=== PATIENT | female | born 1980 ===

== ENCOUNTER 2018-12-05 15:49 | Emergency (ER) | payer OTHER ==
[2018-12-05] MEDS ORDERED: ONDANSETRON 4 MG TAB.RAPDIS PO ONE (16:02)
--- NOTE | 2018-12-05 16:05 | ER Document Report ---
ED Medical Screen (RME) - General Chief Complaint: Dizziness Stated Complaint: DIZZINESS Time Seen by Provider: 12/05/18 15:58 Mode of Arrival: Ambulatory Information source: Patient Notes: 38-year-old female presented to ED for complaint of unsteady on her feet and stumbling when she got up. She states she woke up with gated bed had a headache and stumbled so she went back to bed slept for some morning when she got up she stumbled again when she got up. She states she cannot keep her balance. She is alert oriented respirations regular and unlabored speaking in full sentences and walks with a even steady gait in the emergency room. She states she has never had anything like this before. She states her friend that she lives with his diabetic so he tested her sugar and told her it was low on a half of but nothing that was bad. She states she has a history of a left fibular right hand fracture and a neck injury and ear tubes other than that she has no medical history. She does not smoke rarely drinks and is an [employer]. I have greeted and performed a rapid initial assessment of this patient. A comprehensive ED assessment and evaluation of the patient, analysis of test results and completion of medical decision making process will be conducted by an additional ED providers. TRAVEL OUTSIDE OF THE [place] IN LAST 30 DAYS: No - Related Data Allergies/Adverse Reactions: No Known Allergies Allergy (Verified 12/05/18 15:50) Physical Exam - Vital signs Vitals: Temp Pulse Resp BP Pulse Ox 98.7 F 88 18 119/77 95 12/05/18 15:58 12/05/18 15:58 12/05/18 15:58 12/05/18 15:58 12/05/18 15:58 Course - Vital Signs Vital signs: Temp Pulse Resp BP Pulse Ox 98.7 F 88 18 119/77 95 12/05/18 15:58 12/05/18 15:58 12/05/18 15:58 12/05/18 15:58 12/05/18 15:58
[2018-12-05] MEDS ORDERED: ONDANSETRON 4 MG TAB.RAPDIS ONE (16:23)
[2018-12-05 16:48] LABS: ABSOLUTE BASOPHILS # (AUTO) 0.1 10^3/uL (0.0-0.2); ABSOLUTE EOSINOPHILS # (AUTO) 0.4 10^3/uL (0.0-0.6); ABSOLUTE LYMPHOCYTES (AUTO) 2.3 10^3/uL (0.5-4.7); ABSOLUTE MONOCYTES (AUTO) 0.8 10^3/uL (0.1-1.4); ABSOLUTE NEUT (AUTO) 3.5 10^3/uL (1.7-8.2); BASOPHILS % (AUTO) 0.7 % (0-2); EOSINOPHILS % (AUTO) 5.6 % (0-6); HEMATOCRIT 39.4 % (36.0-47.0); HEMOGLOBIN 13.5 g/dL (12.0-15.5); LYMPHOCYTES % (AUTO) 33.2 % (13-45); MEAN CORPUSCULAR HEMOGLOBIN 29.2 pg (27.0-33.4); MEAN CORPUSCULAR HGB CONC 34.2 g/dL (32.0-36.0); MEAN CORPUSCULAR VOLUME 85 fl (80-97); MONOCYTES % (AUTO) 11.3 % (3-13); PLATELET COUNT 322 10^3/uL (150-450); RED BLOOD COUNT 4.62 10^6/uL (3.72-5.28); SEGMENTED NEUTROPHILS % (AUTO) 49.2 % (42-78); TOTAL CELLS COUNTED % (AUTO) 100 %; WHITE BLOOD COUNT 7.1 10^3/uL (4.0-10.5)
[2018-12-05 16:58] LABS: APPEARANCE,URINE CLEAR; BILIRUBIN,URINE NEGATIVE (NEGATIVE); COLOR,URINE YELLOW; GLUCOSE, URINE NEGATIVE (NEGATIVE); KETONES,URINE NEGATIVE (NEGATIVE); LEUKOCYTE ESTERASE,URINE NEGATIVE (NEGATIVE); NITRITE,URINE NEGATIVE (NEGATIVE); PROTEIN,URINE NEGATIVE (NEGATIVE); URINE SPECIFIC GRAVITY 1.018; UROBILINOGEN,URINE NEGATIVE mg/dL (<2.0)
[2018-12-05 17:09] LABS: ALBUMIN 4.1 g/dL (3.5-5.0); ALKALINE PHOSPHATASE 61 U/L (38-126); ANION GAP 8 (5-19); ASPARTATE AMINO TRANSFERASE 21 U/L (14-36); BILIRUBIN,DIRECT 0.2 mg/dL (0.0-0.4); BILIRUBIN,TOTAL 0.4 mg/dL (0.2-1.3); BLOOD UREA NITROGEN 12 mg/dL (7-20); CALCIUM 9.3 mg/dL (8.4-10.2); CARBON DIOXIDE 27 mmol/L (22-30); CHLORIDE 102 mmol/L (98-107); POTASSIUM 4.1 mmol/L (3.6-5.0); TOTAL PROTEIN 6.9 g/dL (6.3-8.2)
[2018-12-05 17:23] LABS: GLUCOSE 46 mg/dL (75-110)
--- NOTE | 2018-12-05 18:01 | ER Document Report ---
ED General - General Chief Complaint: Dizziness Stated Complaint: DIZZINESS Time Seen by Provider: 12/05/18 15:58 Mode of Arrival: Ambulatory TRAVEL OUTSIDE OF THE [place] IN LAST 30 DAYS: No - HPI Notes: Patient is a 38-year-old female that presents to the emergency department for chief complaint of dizziness. Patient reports 2-3 episodes of dizziness today. She states when she woke up she felt like the room was spinning and she had a hard time ambulating to the bathroom. She went back to bed and then when she woke up again felt okay. The symptoms then returned later in the day. She describes it as feeling like the room was spinning around her and she was going to fall over. Patient states she recently came back from [place] which was a very dry climate. She has been having a lot of sinus congestion, rhinorrhea, ear itching bilaterally and sneezing. Patient denies history of vertigo in the past. Currently she states she is asymptomatic. She denied any vision changes, numbness, weakness, chest pain, nausea or vomiting and syncopal episodes. Past Medical History: Depression Past Surgical History: Bilateral TM tubes Social History: Denies drug alcohol tobacco use Family History: Reviewed and noncontributory for presenting illness Allergies: Reviewed, see documented allergy list. REVIEW OF SYSTEMS: CONSTITUTIONAL : No fever No chills No diaphoresis No recent illness EENT: No vision changes congestion No sore throat CARDIOVASCULAR: No chest pain No palpitations RESPIRATORY: No shortness of breath No cough No difficulty breathing GASTROINTESTINAL: No abdominal pain No nausea No vomiting No diarrhea GENITOURINARY: No dysuria No hematuria No difficulty urinating MUSCULOSKELETAL: No back pain No leg pain No arm pain SKIN: No rashes No lesions LYMPHATIC: No swollen, enlarged glands. NEUROLOGICAL: No lightheadedness No headache No weakness No paresthesias Dizziness PSYCHIATRIC: No anxiety No depression PHYSICAL EXAMINATION: Vital signs reviewed, nursing noted reviewed. GENERAL: Well-appearing, well-nourished and in no acute distress. HEAD: Atraumatic, normocephalic. EYES: Eyes appear normal, extraocular movements intact, sclera anicteric, conjunctiva are normal. ENT: Bilateral nasal mucosal edema and rhinorrhea, no sinus tenderness to percussion, bilateral nonpurulent middle ear effusions, oropharynx clear without exudates. Moist mucous membranes. NECK: Normal range of motion, supple without lymphadenopathy LUNGS: Breath sounds clear to auscultation bilaterally and equal. No wheezes rales or rhonchi. HEART: Regular rate and rhythm without murmurs ABDOMEN: Soft, nontender, normoactive bowel sounds. No rebound, guarding, or rigidity. No masses appreciated. EXTREMITIES: Nontender, good range of motion, no pitting or edema. NEUROLOGICAL: No focal neurological deficits. Moves all extremities spontaneously Motor and sensory grossly intact on exam. PSYCH: Normal mood, normal affect. SKIN: Warm, Dry, normal turgor, no rashes or lesions noted on exposed skin - Related Data Allergies/Adverse Reactions: No Known Allergies Allergy (Verified 12/05/18 15:50) Past Medical History - General Information source: Patient - Social History Smoking Status: Never Smoker Frequency of alcohol use: None Drug Abuse: None Family History: Reviewed & Not Pertinent Patient has suicidal ideation: No Patient has homicidal ideation: No Physical Exam - Vital signs Vitals: Temp Pulse Resp BP Pulse Ox 98.7 F 88 18 119/77 95 12/05/18 15:58 12/05/18 15:58 12/05/18 15:58 12/05/18 15:58 12/05/18 15:58 Course - Re-evaluation Re-evalutation: 12/05/18 18:05 Vitals reviewed. Nursing notes reviewed. Patient is alert and asymptomatic upon my evaluation of her. She has had significant sinus congestion and sneezing over the last week. Patient also has bilateral ear effusions. Her symptoms are most consistent with BPPV. She was advised to begin taking Claritin or Zyrtec. She will be given a prescription for Nasonex and meclizine. Patient will be referred to ENT for follow-up of her vertigo symptoms. Her work-up in the emergency room showed hypoglycemia however when it was rechecked her blood sugar was 90 and 99. She has no history of diabetes. She did have a friend check her blood sugar at home which she states was 116. I feel to be 46 obtained in the lab was likely an error and she was not actually hypoglycemic. Laboratory 12/05/18 12/05/18 12/05/18 16:15 16:15 16:15 WBC 7.1 RBC 4.62 Hgb 13.5 Hct 39.4 MCV 85 MCH 29.2 MCHC 34.2 RDW 13.0 Plt Count 322 Lymph % (Auto) 33.2 [place] % (Auto) 11.3 Eos % (Auto) 5.6 Baso % (Auto) 0.7 Absolute Neuts (auto) 3.5 Absolute Lymphs (auto) 2.3 Absolute Monos (auto) 0.8 Absolute Eos (auto) 0.4 Absolute Basos (auto) 0.1 Seg Neutrophils % 49.2 Sodium 137.4 Potassium 4.1 Chloride 102 Carbon Dioxide 27 Anion Gap 8 BUN 12 Creatinine 0.56 Est GFR ( Amer) > 60 Est GFR (MDRD) Non-Af > 60 Glucose 46 L POC Glucose Calcium 9.3 Total Bilirubin 0.4 Direct Bilirubin 0.2 Neonat Total Bilirubin Not Reportable Neonat Direct Bilirubin Not Reportable Neonat Indirect Bili Not Reportable AST 21 ALT 15 Alkaline Phosphatase 61 Total Protein 6.9 Albumin 4.1 Serum HCG, Qual NEGATIVE Urine Color Urine Appearance Urine pH Ur Specific [place] Urine Protein Urine Glucose (UA) Urine Ketones Urine Blood Urine Nitrite Urine Bilirubin Urine Urobilinogen Ur Leukocyte Esterase Urine WBC (Auto) Urine RBC (Auto) Urine Bacteria (Auto) Squamous Epi Cells Auto Urine Mucus (Auto) Urine Ascorbic Acid 12/05/18 12/05/18 12/05/18 16:15 17:26 17:39 WBC RBC Hgb Hct MCV MCH MCHC RDW Plt Count Lymph % (Auto) [place] % (Auto) Eos % (Auto) Baso % (Auto) Absolute Neuts (auto) Absolute Lymphs (auto) Absolute Monos (auto) Absolute Eos (auto) Absolute Basos (auto) Seg Neutrophils % Sodium Potassium Chloride Carbon Dioxide Anion Gap BUN Creatinine Est GFR ( Amer) Est GFR (MDRD) Non-Af Glucose POC Glucose 90 99 Calcium Total Bilirubin Direct Bilirubin Neonat Total Bilirubin Neonat Direct Bilirubin Neonat Indirect Bili AST ALT Alkaline Phosphatase Total Protein Albumin Serum HCG, Qual Urine Color YELLOW Urine Appearance CLEAR Urine pH 5.[address] [place] 1.018 Urine Protein NEGATIVE Urine Glucose (UA) NEGATIVE Urine Ketones NEGATIVE Urine Blood MODERATE H Urine Nitrite NEGATIVE Urine Bilirubin NEGATIVE Urine Urobilinogen NEGATIVE Ur Leukocyte Esterase NEGATIVE Urine WBC (Auto) 1 Urine RBC (Auto) 6 Urine Bacteria (Auto) TRACE Squamous Epi Cells Auto 1 Urine Mucus (Auto) RARE Urine Ascorbic Acid NEGATIVE - Vital Signs Vital signs: Temp Pulse Resp BP Pulse Ox 98.7 F 88 18 119/77 95 12/05/18 15:58 12/05/18 15:58 12/05/18 15:58 12/05/18 15:58 12/05/18 15:58 - Laboratory Result Diagrams: 12/05/18 16:15 12/05/18 16:15 Laboratory results interpreted by me: 12/05/18 12/05/18 16:15 16:15 Glucose 46 L Urine Blood MODERATE H Discharge - Discharge Clinical Impression: BPPV (benign paroxysmal positional vertigo) Qualifiers: Laterality: bilateral Qualified Code(s): H81.13 - Benign paroxysmal vertigo, bilateral Middle ear effusion Qualifiers: Laterality: bilateral Qualified Code(s): H65.93 - Unspecified nonsuppurative otitis media, bilateral Condition: Stable Disposition: HOME, SELF-CARE Instructions: Meclizine ([facility]), Vertigo ([facility]) Additional Instructions: Please return to the emergency department if you have any worsening, or concern of your symptoms. Please return to the emergency department if you develop chest pain, difficulty breathing, severe abdominal pain, or ongoing vomiting. Please follow-up with your primary care physician in 2-3 days and any other recommended physicians. If prescribed, take all medications as directed. If you have any questions or concerns do not hesitate to return the emergency department for evaluation. Prescriptions: Meclizine HCl [Antivert 25 mg Tablet] 25 mg PO TID PRN #21 tablet PRN Reason: Dizziness Mometasone Furoate [Nasonex] 1 spray NS Q12 #1 spray.pump Referrals: NEENA MILLER MD [ACTIVE STAFF] - Follow up in 3-5 days
[2018-12-05 18:23] VITALS: BP 112/71
== END 2018-12-05 18:21 | disposition home or self-care (01) ==
LOC: ER 15:49
DX: H81.13 Benign paroxysmal vertigo, bilateral (principal); H65.93 Unspecified nonsuppurative otitis media, bilateral; R09.81 Nasal congestion
CPT/HCPCS: 99284; 36415; 82962; 84703; 85025; 80053; 81001; S0119